=== PATIENT | male | born 1990 | race Two or more races ===

== ENCOUNTER 2020-11-08 14:00 | Emergency (ER) | payer MEDICAID, OTHER ==
[~2020-11-08] VITALS: Ht 167.6 cm; Wt 104.3 kg
[2020-11-08 15:28] VITALS: BP 143/100
[2020-11-08] MEDS ORDERED: ONDANSETRON HCL 4 MG/2 ML VIAL IV ONE (15:45)
[2020-11-08] MEDS ORDERED: FAMOTIDINE (10MG/ML) 2ML VL IV ONE (15:45)
[2020-11-08] MEDS ORDERED: KETOROLAC TROMETH 30 MG/ML 1ML VIAL IV ONE (15:45)
[2020-11-08 16:49] LABS: Basophils # (auto) 0.1 10 ^3/uL (0-0.2); Basophils % (auto) 0.7 % (0.0-2.0); Eosinophils # (auto) 0 10 ^3/uL (0-0.8); Hemoglobin 15.5 g/dL (13.5-17.5); Lymphocytes # (auto) 1.5 10 ^3/uL (0.4-5.4); Lymphocytes % (auto) 17.7 % (10.0-50.0); Mean Corpuscular Hemoglobin 30.9 pg (28.0-32.0); Mean Corpuscular Hgb Conc. 35.1 g/dL (32.0-36.0); Mean Corpuscular Volume 87.8 fL (80.0-100.0); Monocytes # (auto) 0.5 10 ^3/uL (0-1.3); Monocytes % (auto) 5.6 % (0.0-12.0); Neutrophils # (auto) 6.4 10 ^3/uL (1.6-8.6); Nucleated Red Blood Cells % 0.1 %; Platelet Count (auto) 283 10^3/uL (140-450); Red Blood Cells 5.01 10^6/uL (4.5-5.90); Red Cell Distribution Width 13.3 % (11.8-14.3); White Blood Cell 8.5 10^3/uL (4.4-10.8)
[2020-11-08 16:58] LABS: Alanine Aminotransferase 37 U/L (16-61); Albumin 4.1 g/dL (3.4-5.0); Anion Gap 7 (5-15); Aspartate Aminotransferase 14 U/L (15-37); BUN/Creatinine Ratio 21.5; Blood Alcohol < 3.0 mg/dL (0-5); Blood Urea Nitrogen 14 mg/dL (7-18); Carbon Dioxide 24 mmol/L (21-32); Chloride 107 mmol/L (98-107); GFR African American 188 mL/min; GFR Non-African American 155 mL/min; Glucose 106 mg/dL (74-106); Lipase 104 U/L (73-393); Potassium 3.4 mmol/L (3.5-5.1); Sodium 138 mmol/L (136-145)
[2020-11-08 17:01] LABS: Alkaline Phosphatase 69 U/L (45-117); Bilirubin, Total 1.8 mg/dL (0.2-1.0)
== END 2020-11-08 17:33 | disposition home or self-care (01) ==
LOC: ER 14:00
DX: K21.9 Gastro-esophageal reflux disease without esophagitis (principal); F41.9 Anxiety disorder, unspecified; M25.512 Pain in left shoulder; F17.210 Nicotine dependence, cigarettes, uncomplicated
CPT/HCPCS: 36415; 76705; 80053; 80320; 83690; 85025; 96374; 96375; 99284; J1885; J2405; J3490

== ENCOUNTER 2023-08-01 10:17 | Emergency (ER) | payer BC, MEDICAID ==
[~2023-08-01] VITALS: Ht 165.1 cm; Wt 127.6 kg
[2023-08-01 11:25] LABS: Basophils # (auto) 0.1 10 ^3/uL (0-0.2); Basophils % (auto) 1.2 % (0.0-2.0); Eosinophils # (auto) 0.1 10 ^3/uL (0-0.8); Eosinophils % (auto) 1.4 % (0.0-7.0); Hematocrit 46.8 % (41.0-53.0); Hemoglobin 16.1 g/dL (13.5-17.5); Lymphocytes # (auto) 1.8 10 ^3/uL (0.4-5.4); Lymphocytes % (auto) 28.8 % (10.0-50.0); Mean Corpuscular Hemoglobin 29.9 pg (28.0-32.0); Mean Corpuscular Hgb Conc. 34.4 g/dL (32.0-36.0); Mean Corpuscular Volume 86.9 fL (80.0-100.0); Monocytes # (auto) 0.4 10 ^3/uL (0-1.3); Monocytes % (auto) 6.3 % (0.0-12.0); Neutrophils % (auto) 62.3 % (37.0-80.0); Nucleated Red Blood Cells % 0.2 %; Red Blood Cells 5.39 10^6/uL (4.5-5.90); Red Cell Distribution Width 13.7 % (11.8-14.3); White Blood Cell 6.3 10^3/uL (4.4-10.8)
[2023-08-01 11:41] LABS: Alanine Aminotransferase 44 U/L (7-40); Albumin 4.2 g/dL (3.2-4.8); Alkaline Phosphatase 90 U/L (46-116); Anion Gap 8 (5-15); Aspartate Aminotransferase 17 U/L (13-40); BUN/Creatinine Ratio 20.5 (10.0-20.0); Bilirubin, Total 1.1 mg/dL (0.2-1.0); Blood Urea Nitrogen 16 mg/dL (9-23); Carbon Dioxide 23 mmol/L (20-30); Chloride 108 mmol/L (98-107); Glucose 107 mg/dL (74-106); Lipase 42 U/L (12-53); Potassium 4.1 mmol/L (3.5-5.1); Sodium 139 mmol/L (136-145)
[2023-08-01 11:42] LABS: Total Protein 7.4 g/dL (5.7-8.2)
[2023-08-01 12:03] LABS: Erythrocyte Sedimentation Rate 8 mm/hr (0-20)
[2023-08-01] MEDS ORDERED: NAPR-1334 PO (12:28)
[2023-08-01] MEDS ORDERED: FAMO20TA10 PO (12:28)
[2023-08-01 12:44] VITALS: BP 123/71; PULSE 76; RESP 18; O2SAT 98
== END 2023-08-01 12:46 | disposition home or self-care (01) ==
LOC: ER 10:17
DX: S16.1XXA Strain of muscle, fascia and tendon at neck level, initial encounter (principal); K21.9 Gastro-esophageal reflux disease without esophagitis; R03.0 Elevated blood-pressure reading, without diagnosis of hypertension; R07.89 Other chest pain; R51.9 Headache, unspecified; F41.9 Anxiety disorder, unspecified; X58.XXXA Exposure to other specified factors, initial encounter; Y93.89 Activity, other specified; Y92.89 Other specified places as the place of occurrence of the external cause; Y99.8 Other external cause status
CPT/HCPCS: 36415; 70450; 71045; 72125; 80053; 83690; 84484; 85025; 85652; 93005